=== PATIENT | female | born 1990 | race Caucasian/White ===

== ENCOUNTER 2021-12-23 11:44 | Inpatient (IN) | payer OTHER ==
[~2021-12-23] VITALS: Ht 170.2 cm; Wt 77.1 kg
[2021-12-23 13:44] LABS: HEMOGLOBIN 11.1 gm/dl (12.3-15.3); RED BLOOD COUNT 3.96 M/UL (4.00-5.10); WHITE BLOOD COUNT 7.1 K/UL (4.5-11.0)
[2021-12-23 13:55] LABS: BUN/CREATININE RATIO 15 (0-10)
[2021-12-23] MEDS ORDERED: DOCUSATE SODIU100 MG PO (23:38)
[2021-12-23] MEDS ORDERED: IBUPROFEN600 MG PO (23:38)
[2021-12-24 06:56] LABS: HEMOGLOBIN 10.5 gm/dl (12.3-15.3)
== END 2021-12-25 14:24 | disposition home or self-care (01) | DRG 805 ==
LOC: GENOP 11:44 → OB 12:33
PROVIDERS: ADMIT Obstetrics & Gynecology
PROC: 10E0XZZ Delivery of Products of Conception, External Approach (ICD-10-PCS; principal; 2021-12-23)
PROC: 10907ZC Drainage of Amniotic Fluid, Therapeutic from Products of Conception, Via Natural or Artificial Opening (ICD-10-PCS; 2021-12-23)
PROC: 4A1HXCZ Monitoring of Products of Conception, Cardiac Rate, External Approach (ICD-10-PCS; 2021-12-23)
PROC: 0HQ9XZZ Repair Perineum Skin, External Approach (ICD-10-PCS; 2021-12-23)
PROC: 3E0234Z Introduction of Serum, Toxoid and Vaccine into Muscle, Percutaneous Approach (ICD-10-PCS; 2021-12-23)
DX: O26.62 Liver and biliary tract disorders in childbirth (principal); K83.1 Obstruction of bile duct; Z37.0 Single live birth; Z20.822 Contact with and (suspected) exposure to COVID-19; Z3A.37 37 weeks gestation of pregnancy; O62.2 Other uterine inertia; O70.0 First degree perineal laceration during delivery; Z98.890 Other specified postprocedural states; Z23 Encounter for immunization
CPT/HCPCS: 36415; 80053; 81001; 82800; 85014; 85018; 85025; 90471; 90715; C9113; J0595; J0780; J2210; J2405; J2550; J2590; J7120; U0002